=== PATIENT | male | born 1955 | race Caucasian/White ===

== ENCOUNTER 2017-05-01 14:59 | Outpatient (CLI) | payer OTHER ==
[2017-05-01 15:32] LABS: BASOPHILS % 0.8 (0.0-1.5); EOSINOPHILS % 2.4 % (0.0-6.8); MEAN CORPUSCULAR HEMOGLOBIN 32.5 pg (28.0-34.0); MEAN CORPUSCULAR VOLUME 99.2 fl (80.0-100.0); MONOCYTES % 5.2 % (0.0-11.0)
[2017-05-01 15:49] LABS: eGFR (African) 44; eGFR (Non-African) 36
--- NOTE | 2017-05-01 23:21 | Diagnostic Imaging Report ---
JOSHUA FUNK [facility] [address] [facility] [address] [place], [place]. [address] Report Submission Date: May 01, 2017 4:31:21 PM CDT Patient Study Name: GAVI APPIAH Date: May 01, 2017 4:04:00 PM CDT Modality Type: CT\SR Gender: M Description: CT ABD & PELVIS W/O CO : 57 Institution: [facility] Physician: JOSHUA FUNK Examination: CT Abdomen/pelvis History: Right lower quadrant discomfort Comparison exam: None provided Technique: CT Abdomen/pelvis without contrast Findings: Mild atrophy of the right kidney. Exophytic cyst projecting of the upper lateral margin the left kidney measuring 3.6 cm. No evidence for cortical calcification on the left. 3 mm peripheral calcification involving the inferior margin of the right kidney. Ureters are nondilated in their course of the abdomen and pelvis. No central calcifications are identified. Ureterovesicular junction without calcification. Liver, spleen, right adrenal gland, pancreas, gallbladder are without gross irregularity given technique. Prominence of the left adrenal gland. Abdominal aorta demonstrates dilation to a maximum diameter of 5 cm - stent graft in place. Bowel unopacified limiting evaluation. Stool throughout the large bowel. Cecal region without inflammatory changes. No mesenteric inflammation or free fluid. Sigmoidal diverticulitis. Osseous structures demonstrate degenerative changes specifically of the facets. Lung bases with mild dependent atelectasis. Cardiac silhouette mildly prominent with thickening of the pericardium. Streak artifact from cardiac pacemaker Impression: Right nephrolithiasis. No evidence for ureterolithiasis. No evidence for abdominal inflammatory process though sensitivity reduced due to exam technique. Dilated abdominal as aorta: Graft in place. Sigmoid diverticulosis. No evidence for diverticulitis Electronically signed on May 01, 2017 4:31:21 PM CDT by: Blair KEITA
== END 2017-05-01 15:00 ==
LOC: RAD 14:59
PROVIDERS: ATTEND Physician Assistant
DX: R10.31 Right lower quadrant pain (principal)
CPT/HCPCS: 74176; 80053; 85025

== ENCOUNTER 2017-06-15 19:37 | Emergency (ER) | payer OTHER ==
[2017-06-15] MEDS: IPRATROPIUM/ALBUTEROL SULFATE 3 ML AMPUL.NEB NEB ONE (19:45)
[2017-06-15] MEDS ORDERED: IPRATROPIUM/ALBUTEROL SULFATE 3 ML AMPUL.NEB NEB ONE (19:48)
--- NOTE | 2017-06-15 19:52 | ED Physician Documentation ---
General Adult - HISTORIAN Historian: patient - HPI Stated Complaint: sob Chief Complaint: General Adult Onset: hours Timing: still present Severity: moderate Further Comments: yes (Pt is a 61 yo male who presents with acute shortness of breath. Pt has not been feeling well for 2 day and attributed his sx to hot weather. Today he became acutely sob and came to ER in resp distress with SpO2 88% RA, tripoding, speaking in one word responses, and diaphoretic. He said that he did not have chest pain. Pt has hx CHF, [place] x 2 with stents placed. Pt has a pacemaker. Pt has a "problem with heart valves." Pt's cyanide pot tender is Dr. Matty Caceres at [facility].) - ROS CONST: sweating EYES/ENT: none CVS/RESP: shortness of breath MS/SKIN/LYMPH: none - PAST HX Past History: other (CHF, [place] x 2 with stents placed; Pacemaker; HTN; abd aneurysm; "heart valve problem") Allergies/Adverse Reactions: Allergies Allergy/AdvReac Type Severity Reaction Status Date / Time No Known Allergies Allergy Verified 06/15/17 20:15 Home Medications: Ambulatory Orders Medication Instructions Recorded Acetaminophen [Tylenol] 325 mg PO Q6 PRN 06/15/17 Albuterol Sulfate [Proair HFA] 1 inh IH BID PRN 06/15/17 Aspirin [Yvrose] 81 mg PO DAILY 06/15/17 Carvedilol [Coreg] 25 mg PO BID 06/15/17 Digoxin 0.125 mg PO QDAY 06/15/17 Ranolazine [Ranexa] 1,000 mg PO BID 06/15/17 Sacubitril/Valsartan [Entresto 24 97 - 103 mg PO BID 06/15/17 mg-26 mg Tablet] Spironolactone [Aldactone] 25 mg PO DAILY 06/15/17 Torsemide [Demadex] 20 mg PO BID 06/15/17 - SOCIAL HX Smoking History: quit greater than 1 year - FAMILY HX Family History: No - REVIEWED ASSESSMENTS Nursing Assessment Reviewed: Yes Vitals Reviewed: Yes Progress - Progress Progress: Duoneb HFN Pt developed a rash on torso during Duoneb tx Solu-medrol 125 mg IV Pro BNP = 19,510 D-dimer > 5000 Pt comfortable after Duoneb tx SpO2 94% on 5 L NC HR 95 Resp 16 BP 156/90 ABG: pH 7.47; pCO2 36; pO2 114; HCO3 26.2; SaO2 99% on 5 L NC Transfer to [facility], Dr. Cordero. - EKG/XRAY/CT EKG: rhythm (Paced rhythm, ZU=104) XRAY: chest (Congestive heart failure.) ED Results Lab/Radiology - Orders Orders: ED Orders Category Date Time Status Continuous EKG monitoring Q30M Care 06/15/17 19:50 Active Continuous Pulse Oximetry Q30M Care 06/15/17 19:50 Active CHEST 1 VIEW [RAD] Stat Exams 06/15/17 19:50 Ordered BNP [NT-proBNP] Stat Lab 06/15/17 Ordered CBC/PLATELET/DIFF Routine Lab 06/15/17 19:50 Ordered CKMB Stat Lab 06/15/17 Ordered CMP Routine Lab 06/15/17 19:50 Ordered CREATINE KINASE Routine Lab 06/15/17 19:50 Ordered TROPONIN I (cTnI) Stat Lab 06/15/17 Ordered Ipratropium/Albuterol Sulfate [Duoneb] Med 06/15/17 19:48 Discontinued 3 ml NEB .STK-MED ONE Oxygen Daily Oxygen 06/15/17 20:00 Ordered EKG WITH COMPARISON Stat Ther 06/15/17 19:50 Ordered General Adult Physical Exam - PHYSICAL EXAM GENERAL APPEARANCE: moderate distress EENT: pharynx normal NECK: normal inspection, supple RESPIRATORY: wheezes, rales (b/l throughout) CVS: tachycardia ABDOMEN: soft, no organomegaly, normal bowel sounds BACK: normal inspection, no CVA tenderness SKIN: diaphoresis EXTREMITIES: non-tender, normal range of motion, no evidence of injury, no edema NEURO: oriented X3, motor nml, sensation nml Discharge Clincal Impression: dyspnea, CHF, elevated D-dimer Referrals: William Barone MD [Primary Care Provider] - Home Medications: Ambulatory Orders Acetaminophen [Tylenol] 325 mg PO Q6 PRN 06/15/17 Albuterol Sulfate [Proair HFA] 1 inh IH BID PRN 06/15/17 Aspirin [Yvrose] 81 mg PO DAILY 06/15/17 Carvedilol [Coreg] 25 mg PO BID 06/15/17 Digoxin 0.125 mg PO QDAY 06/15/17 Ranolazine [Ranexa] 1,000 mg PO BID 06/15/17 Sacubitril/Valsartan [Entresto 24 mg-26 mg Tablet] 97 - 103 mg PO BID 06/15/17 Spironolactone [Aldactone] 25 mg PO DAILY 06/15/17 Torsemide [Demadex] 20 mg PO BID 06/15/17 Condition: Stable Disposition: 02 XFER [id number]-TRM HOSP Decision to Admit: NO Decision Time: 21:58
[2017-06-15] MEDS: methylPREDNISolone SOD SUCC 125 MG/2 ML VIAL IVP ONE (20:00)
[2017-06-15 20:14] LABS: BASOPHILS % 0.8 (0.0-1.5); EOSINOPHILS % 2.2 % (0.0-6.8); MEAN CORPUSCULAR HEMOGLOBIN 33.6 pg (28.0-34.0); MEAN CORPUSCULAR VOLUME 99.2 fl (80.0-100.0); NEUTROPHILS # 10.6 # k/uL (1.4-7.7)
--- NOTE | 2017-06-15 20:23 | Diagnostic Imaging Report ---
ROSALINA KRAFT [facility] [address] [facility] [address] [address] Report Submission Date: Jun 15, 2017 8:13:15 PM CDT Patient Study Name: GAVI APPIAH Date: Jun 15, 2017 7:52:15 PM CDT Modality Type: CR Gender: M Description: CHEST : 57 Institution: [facility] Physician: ROSALINA KRAFT Portable chest HISTORY: Shortness of breath FINDINGS: Severe bilateral panlobar infiltrates are consistent with pulmonary edema. Pulmonary vascular congestion, cardiomegaly, and triple lead implantable cardiac defibrillator are observed. There is no pleural effusion. IMPRESSION: Congestive heart failure. Electronically signed on Jun 15, 2017 8:13:15 PM CDT by: Carson KEITA
[2017-06-15] MEDS ORDERED: FUROSEMIDE 40 MG/4 ML VIAL ONE (20:47)
[2017-06-15] MEDS: FUROSEMIDE 40 MG/4 ML VIAL IVP ONE (21:00)
[2017-06-15 23:41] VITALS: BP 146/87
== END 2017-06-15 22:30 | disposition short-term general hospital (02) ==
LOC: ED 19:37
DX: R06.00 Dyspnea, unspecified (principal); I50.9 Heart failure, unspecified
CPT/HCPCS: 71010; 80053; 80162; 82550; 82553; 83880; 84484; 85025; 85379; J1940; J2930; 96374; 96375; 99284; S1016

== ENCOUNTER 2017-11-05 15:33 | Outpatient (CLI) | payer OTHER ==
[2017-11-05 16:16] LABS: eGFR (African) 53; eGFR (Non-African) 44
== END 2017-11-05 15:40 ==
LOC: LAB 15:33
PROVIDERS: ATTEND Internal Medicine Interventional Cardiology
DX: I50.22 Chronic systolic (congestive) heart failure (principal)
CPT/HCPCS: 36415; 80048

== ENCOUNTER 2018-02-06 07:25 | Outpatient (CLI) | payer OTHER ==
[2018-02-06 08:20] LABS: eGFR (African) 36; eGFR (Non-African) 29
== END 2018-02-06 07:30 ==
LOC: LAB 07:25
PROVIDERS: ATTEND Nurse Practitioner Family
DX: I25.5 Ischemic cardiomyopathy (principal)
CPT/HCPCS: 36415; 80048